=== PATIENT | male | born 1955 | race Caucasian/White ===

== ENCOUNTER → 2017-07-02 | Outpatient (CLI) | payer OTHER ==
[2017-07-02 10:08] LABS: BASO # 0.1 10^3/uL (0.0-0.2); BASO % 0.9 % (0.0-1.0); EOS # 0.3 10^3/uL (0.0-0.50); EOS % 3.2 % (0.0-3.0); IMMATURE GRANULOCYTE % 0.4 % (0-0); LYMPH # 2.3 10^3/uL (1.5-4.5); LYMPH % 29.8 % (24.0-44.0); MEAN CORPUSCULAR HEMOGLOBIN 30.9 pg (27.0-33.0); MEAN CORPUSCULAR HGB CONC 34.3 g/dl (32.0-36.5); MONO # 0.6 10^3/uL (0.0-0.8); MONO % 8.3 % (0.0-5.0); NEUTROPHILS # 4.4 10^3/uL (1.8-7.7); NEUTROPHILS % 57.4 % (36.0-66.0); PLATELET COUNT, AUTOMATED 250 10^3/uL (150-450); RED CELL DISTRIBUTION WIDTH 13.1 % (11.5-14.5); WHITE BLOOD COUNT 7.7 10^3/uL (4.0-10.0)
[2017-07-02 10:34] LABS: ALBUMIN 3.7 GM/DL (3.2-5.2); ALBUMIN/GLOBULIN RATIO 1.06 (1.00-1.93); ALKALINE PHOSPHATASE 114 U/L (45-117); ALT/SGPT 23 U/L (12-78); ANION GAP 8 MEQ/L (8-16); AST/SGOT 20 U/L (7-37); BILIRUBIN,TOTAL 0.2 MG/DL (0.2-1.0); BLOOD UREA NITROGEN 17 MG/DL (7-18); CARBON DIOXIDE LEVEL 25 MEQ/L (21-32); CHLORIDE LEVEL 104 MEQ/L (98-107); CHOLESTEROL LEVEL 186 MG/DL (<200); CREATININE FOR GFR 1.01 MG/DL (0.70-1.30); GLOMERULAR FILTRATION RATE > 60.0 (>49); GLUCOSE, FASTING 94 MG/DL (80-110); POTASSIUM SERUM 4.5 MEQ/L (3.5-5.1); SODIUM LEVEL 137 MEQ/L (136-145); TOTAL PROTEIN 7.2 GM/DL (6.4-8.2); TRIGLYCERIDES LEVEL 150 MG/DL (<150)
[2017-07-02 11:21] LABS: PLT CLUMPS? POS FLAG; POS COUNT POS FLAG
[2017-07-02 11:22] LABS: ADD MANUAL DIFFER NO; DIFF SLIDE NUMBER 129
== END ==
LOC: M WUC 08:10
PROVIDERS: ATTEND Emergency Medicine
DX: E78.2 Mixed hyperlipidemia (principal); N40.0 Benign prostatic hyperplasia without lower urinary tract symptoms

== ENCOUNTER 2017-07-30 09:52 | Day surgery (SDC) | payer OTHER ==
[2017-07-30] MEDS: NS 1,000 ML IV (10:15)
[2017-07-30] MEDS ORDERED: PROPOFOL 500 MG/50 ML VIAL As Ordered (11:13)
[2017-07-30] MEDS ORDERED: LIDOCAINE 2% INJ 100 MG/5 ML SDV (FOR ANES.) As Ordered (11:13)
== END 2017-07-30 11:57 | disposition home or self-care (01) ==
LOC: M OPP 09:52
DX: Z12.11 Encounter for screening for malignant neoplasm of colon (principal); Z86.010 Personal history of colon polyps; D12.3 Benign neoplasm of transverse colon; D12.5 Benign neoplasm of sigmoid colon; K64.8 Other hemorrhoids; K57.30 Diverticulosis of large intestine without perforation or abscess without bleeding; M19.90 Unspecified osteoarthritis, unspecified site; G47.30 Sleep apnea, unspecified; R06.83 Snoring; N40.0 Benign prostatic hyperplasia without lower urinary tract symptoms; R09.89 Other specified symptoms and signs involving the circulatory and respiratory systems; F17.210 Nicotine dependence, cigarettes, uncomplicated; Z80.3 Family history of malignant neoplasm of breast; Z80.8 Family history of malignant neoplasm of other organs or systems; Z80.0 Family history of malignant neoplasm of digestive organs
CPT/HCPCS: 45385

== ENCOUNTER → 2018-09-27 | Outpatient (REF) | payer OTHER ==
[~2018-09-27] MED LIST: IBUP200C25 PO
== END ==
LOC: M LAB REF 19:18
PROVIDERS: ATTEND Dermatology
DX: L02.91 Cutaneous abscess, unspecified (principal)

== ENCOUNTER → 2019-07-05 | Outpatient (CLI) | payer OTHER ==
[2019-07-05 17:07] LABS: BLOOD UREA NITROGEN 16 MG/DL (7-18); CREATININE FOR GFR 0.95 MG/DL (0.70-1.30); GLOMERULAR FILTRATION RATE > 60.0 (>49)
== END ==
LOC: M WUC 12:19
PROVIDERS: ATTEND Physician Assistant
DX: Z01.812 Encounter for preprocedural laboratory examination (principal); R22.1 Localized swelling, mass and lump, neck

== ENCOUNTER → 2019-08-09 | Outpatient (REF) | payer OTHER | LOC: M LAB REF 14:57 | PROVIDERS: ATTEND Specialist | DX: D11.0 Benign neoplasm of parotid gland (principal) ==

== ENCOUNTER → 2019-09-02 | Outpatient (CLI) | payer OTHER ==
[~2019-09-02] MED LIST changes: +MULTCAP PO
--- NOTE | 2019-09-02 16:30 | ECGEPIP ---
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
== END ==
LOC: M EKG 15:11
PROVIDERS: ATTEND Anesthesiology
DX: Z01.818 Encounter for other preprocedural examination (principal); J44.9 Chronic obstructive pulmonary disease, unspecified

== ENCOUNTER 2019-09-06 11:16 | Day surgery (SDC) | payer OTHER ==
[~2019-09-06] VITALS: Ht 175.3 cm; Wt 66.7 kg
[2019-09-06] MEDS ORDERED: BACITRACIN OINT 30GM As Ordered ONE (12:40)
[2019-09-06] MEDS ORDERED: LIDOCAINE W/EPINEPHRINE 1% 20ML VIAL As Ordered ONE (12:40)
[2019-09-06] MEDS ORDERED: SUGAMMADEX SODIUM 500 MG/5 ML VIAL (BRIDION) As Ordered ONE (13:20)
[2019-09-06] MEDS ORDERED: fentaNYL 100 MCG/2 ML INJECTION (J3010) As Ordered ONE ×4 (13:39→16:02)
[2019-09-06] MEDS ORDERED: dexameTHASONE 4 MG/ML 1ML VIAL (J1100) As Ordered ONE (13:48)
[2019-09-06] MEDS ORDERED: LIDOCAINE 2% INJ 100 MG/5 ML SDV (FOR ANES.) As Ordered ONE ×2 (13:48→15:08)
[2019-09-06] MEDS ORDERED: ONDANSETRON 4MG/2ML VIAL (J2405) As Ordered ONE (13:48)
[2019-09-06] MEDS ORDERED: PHENYLephrine HCL 500 MCG/5 ML (100MCG/ML) SYRINGE (J2370) As Ordered ONE (13:48)
[2019-09-06] MEDS ORDERED: propofoL 200 MG/20 ML VIAL As Ordered ONE (13:48)
[2019-09-06] MEDS ORDERED: ePHEDrine SULFATE 25 MG/5 ML(5MG/ML) SYRINGE As Ordered ONE (13:48)
[2019-09-06] MEDS ORDERED: ACETAMINOPHEN 1000MG 100ML IV BTL (OFIRMEV) (J0131 PER 10MG) As Ordered ONE (13:49)
[2019-09-06] MEDS ORDERED: ACETAMINOPH W/CODEINE #3 TAB UD PO PRN (15:45)
[2019-09-06] MEDS ORDERED: LR 1,000 ML IV SCH ×2 (15:45→16:15)
[2019-09-06] MEDS: fentaNYL 100 MCG/2 ML INJECTION (J3010) IV PRN ×4 (16:03→16:24)
[2019-09-06] MEDS ORDERED: PERCOCET 5MG/325MG TAB PO PRN (16:15)
[2019-09-06] MEDS ORDERED: oxyCODONE 5MG TAB PO SCH (16:15)
[2019-09-06] MEDS ORDERED: ONDANSETRON 4MG/2ML VIAL (J2405) IV PRN (16:15)
[2019-09-06] MEDS ORDERED: oxyCODONE 5MG TAB PO PRN (16:30)
[2019-09-06 17:45] VITALS: BP 164/84
--- NOTE | 2019-09-07 08:18 | RO ---
DATE OF PROCEDURE: 09/06/2019 PREPROCEDURE DIAGNOSIS: Right parotid tumor. POSTPROCEDURE DIAGNOSIS: Right parotid tumor. PROCEDURE: Right superficial parotidectomy SURGEON: Dr. John Rivera FINDINGS: There was a small tumor in the tail of the parotid on the right side. CRAPS DEALER: Ravi Malloy. He helped me with retractors and suturing and holding instruments. ANESTHESIA: DESCRIPTION OF PROCEDURE: Under general anesthesia with the patient intubated, the patient was draped in the usual manner. I used the nerve monitor during the procedure so prior to the procedure the electrodes were hooked up. Once that was done and the patient asleep the patient prepped and draped in the usual manner. I infiltrated the incision with lidocaine with epinephrine. Incision was marked out and then divided skin and subcutaneous tissues. I elevated the tissues off of the parotid. I dissected between the parotid and the external auditory canal and anterior to the sternocleidomastoid muscle. I identified the facial nerve. Vessels seen were cauterized with bipolar cautery. I then dissected down to identify the facial nerve. I followed all the branches of the facial nerve. I reflected the gland and delivered it from the wound. The nerve was stimulated at the end of the procedure. Patient tolerated the procedure well. 75 mL estimated blood loss. I checked the wound to make sure there is no bleeding. Bleeding was controlled by bipolar cautery. I then went and inserted a Jose-Thurston drain through a separate stab wound. Once this was done then I closed the wound with #5-0 nylon and #4-0 Vicryl. Wound was dressed. The patient extubated and transferred to the recovery room in excellent condition.
== END 2019-09-06 18:10 | disposition home or self-care (01) ==
LOC: M SDC 11:16
PROVIDERS: ATTEND Otolaryngology
DX: D11.0 Benign neoplasm of parotid gland (principal); E78.2 Mixed hyperlipidemia; J44.9 Chronic obstructive pulmonary disease, unspecified; F17.218 Nicotine dependence, cigarettes, with other nicotine-induced disorders; N40.0 Benign prostatic hyperplasia without lower urinary tract symptoms
CPT/HCPCS: 42415; 88307; J0131; J1100; J2370; J2405; J3010

== ENCOUNTER → 2019-10-03 | Outpatient (REF) | payer OTHER | LOC: M LAB REF 17:36 | PROVIDERS: ATTEND Dermatology | DX: C44.519 Basal cell carcinoma of skin of other part of trunk (principal) ==

== ENCOUNTER → 2019-10-24 | Outpatient (REF) | payer OTHER | LOC: M LAB REF 12:39 | PROVIDERS: ATTEND Dermatology | DX: C44.519 Basal cell carcinoma of skin of other part of trunk (principal) ==

== ENCOUNTER → 2020-09-18 | Outpatient (CLI) | payer OTHER ==
[2020-09-18 12:08] LABS: BASO # 0.1 10^3/uL (0.0-0.2); BASO % 1.1 % (0.0-1.0); EOS # 0.3 10^3/uL (0.0-0.5); EOS % 3.7 % (0.0-3.0); HEMATOCRIT 44.9 % (42.0-52.0); HEMOGLOBIN 14.7 g/dl (13.5-17.5); LYMPH # 3.4 10^3/uL (1.5-5.0); LYMPH % 42.1 % (24.0-44.0); MEAN CORPUSCULAR HGB CONC 32.7 g/dl (32.0-36.5); MEAN CORPUSCULAR VOLUME 91.6 fl (80.0-96.0); MONO # 0.9 10^3/uL (0.0-0.8); MONO % 10.5 % (2.0-8.0); NEUTROPHILS # 3.4 10^3/uL (1.5-8.5); NEUTROPHILS % 42.1 % (36.0-66.0); PLATELET COUNT, AUTOMATED 263 10^3/uL (150-450); WHITE BLOOD COUNT 8.1 10^3/uL (4.0-10.0)
[2020-09-18 12:39] LABS: ALBUMIN 3.8 GM/DL (3.2-5.2); ALT/SGPT 44 U/L (12-78); BILIRUBIN,TOTAL 0.2 MG/DL (0.2-1.0); BLOOD UREA NITROGEN 14 MG/DL (7-18); CALCIUM LEVEL 9.3 MG/DL (8.8-10.2); CARBON DIOXIDE LEVEL 28 MEQ/L (21-32); CHLORIDE LEVEL 106 MEQ/L (98-107); CHOLESTEROL LEVEL 254 MG/DL (<200); CHOLESTEROL RISK RATIO 7.257 (<5); CREATININE FOR GFR 1.06 MG/DL (0.70-1.30); GLOMERULAR FILTRATION RATE > 60.0 (>49); GLUCOSE, FASTING 101 MG/DL (70-100); HDL CHOLESTEROL 35 MG/DL (>40); LDL CHOLESTEROL 166 MG/DL (<100); NON-HDL-C 219 MG/DL; POTASSIUM SERUM 4.2 MEQ/L (3.5-5.1); SODIUM LEVEL 140 MEQ/L (136-145); TOTAL PROTEIN 7.4 GM/DL (6.4-8.2); TRIGLYCERIDES LEVEL 267 MG/DL (<150)
== END ==
LOC: M WUC 09:08
PROVIDERS: ATTEND Family Medicine
DX: E78.2 Mixed hyperlipidemia (principal)

== ENCOUNTER → 2021-02-05 | Outpatient (CLI) | payer OTHER ==
[~2021-02-05] MED LIST changes: +ISOVUE-370 76% 100ML VIAL As Ordered ONE
--- NOTE | 2021-02-05 15:09 | REP ---
INDICATION: PERSON AL H/O NICOTINE DEPEND. COMPARISON: 10/01/2010 TECHNIQUE: Low-dose lung CT screening protocol FINDINGS: Bilateral fairly symmetric pleuroparenchymal scarring in the apices. This area could certainly obscure parenchymal nodule. There is no pleural effusion, pleural based mass, calcified pleural plaque or acute infiltrate. No parenchymal nodules are identified. Underlying COPD with some emphysematous changes predominantly in the mid and upper lung zones. Central pulmonary arteries are prominent bilaterally, consistent with pulmonary artery hypertension, likely on the basis of COPD IMPRESSION: 1. Lung RADS category 2 benign, benign finding. Apical pleuroparenchymal scarring noted bilaterally and some is seen on the chest x-ray 10 years ago. Patients with this category of scan are considered to have less than 1% chance of malignancy at the time of the examination. For patients at high risk of developing lung malignancy, annual screening low-dose CT recommended. <Electronically signed by Iam Rodríguez > 02/05/21 [id number]
== END ==
LOC: M RAD 13:54
PROVIDERS: ATTEND Family Medicine
DX: Z12.2 Encounter for screening for malignant neoplasm of respiratory organs (principal); Z87.891 Personal history of nicotine dependence; J44.9 Chronic obstructive pulmonary disease, unspecified

== ENCOUNTER → 2021-02-08 | Outpatient (CLI) | payer OTHER ==
[~2021-02-08] MED LIST changes: -ISOVUE-370 76% 100ML VIAL As Ordered ONE
[2021-02-08 16:36] LABS: ALBUMIN 3.8 GM/DL (3.2-5.2); BILIRUBIN,DIRECT 0.1 MG/DL (0.0-0.2); BILIRUBIN,TOTAL 0.5 MG/DL (0.2-1.0); CHOLESTEROL RISK RATIO 3.976 (<5); TOTAL PROTEIN 7.3 GM/DL (6.4-8.2)
== END ==
LOC: M WUC 10:22
PROVIDERS: ATTEND Family Medicine
DX: E78.2 Mixed hyperlipidemia (principal)

== ENCOUNTER → 2021-10-08 | Outpatient (CLI) | payer OTHER ==
[2021-10-08 15:41] LABS: APPEARANCE, URINE CLEAR (CLEAR); BACTERIA, URINE AUTO NEGATIVE (NEGATIVE); BILIRUBIN, URINE AUTO NEGATIVE (NEGATIVE); BLOOD, URINE BLOOD NEGATIVE (NEGATIVE); COLOR, URINE YELLOW (YELLOW); GLUCOSE, URINE (UA) AUTO NEGATIVE (NEGATIVE); KETONE, URINE AUTO NEGATIVE (NEGATIVE); LEUKOCYTE ESTERASE, URINE AUTO NEGATIVE (NEGATIVE); MUCUS, URINE SMALL (NEGATIVE); NITRITE, URINE AUTO NEGATIVE (NEGATIVE); PROTEIN, URINE AUTO NEGATIVE (NEGATIVE); RBC, URINE AUTO 0 /HPF (0-3); SPECIFIC GRAVITY URINE AUTO 1.013 (1.002-1.035); SQUAMOUS EPITHELIAL CELL UR AU 0 /HPF (0-6); UROBILINOGEN, URINE AUTO 0.2 mg/dL (0.0-2.0); WBC, URINE AUTO 1 /HPF (0-3)
[2021-10-08 16:02] LABS: BLOOD UREA NITROGEN 13 MG/DL (7-18); CALCIUM LEVEL 9.4 MG/DL (8.8-10.2); CARBON DIOXIDE LEVEL 26 MEQ/L (21-32); CHLORIDE LEVEL 106 MEQ/L (98-107); CREATININE FOR GFR 1.04 MG/DL (0.70-1.30); GLOMERULAR FILTRATION RATE > 60.0 (>49); GLUCOSE, FASTING 101 MG/DL (70-100); POTASSIUM SERUM 5.1 MEQ/L (3.5-5.1); SODIUM LEVEL 136 MEQ/L (136-145)
== END ==
LOC: M WUC 11:16
PROVIDERS: ATTEND Nurse Practitioner Family
DX: Z01.818 Encounter for other preprocedural examination (principal)

== ENCOUNTER → 2021-10-17 | Outpatient (CLI) | payer OTHER ==
[~2021-10-17] MED LIST changes: +ATOR1TAB19 PO
== END ==
LOC: M LABSMTC 09:59
PROVIDERS: ATTEND Anesthesiology
DX: Z01.818 Encounter for other preprocedural examination (principal); Z11.52 Encounter for screening for COVID-19

== ENCOUNTER 2021-10-21 11:53 | Day surgery (SDC) | payer OTHER ==
[~2021-10-21] VITALS: Ht 175.3 cm; Wt 69.9 kg
[~2021-10-21 11:53] MED LIST changes: +LIDOCAINE 1% MDV 20ML VIAL SQ PRN; +LR 1,000 ML IV ONE; +ceFAZolin SOD 2 GM in IV 1 EA IV ONE
[2021-10-21] MEDS ORDERED: LIDOCAINE W/EPINEPHRINE 1% 20ML VIAL As Ordered ONE (13:08)
[2021-10-21] MEDS ORDERED: LIDOCAINE 2% 100MG/5ML SDV (FOR ANES.) As Ordered ONE (13:28)
[2021-10-21] MEDS ORDERED: MIDAZOLAM INJ 2MG/2ML VIAL (J2250 PER 1MG) As Ordered ONE (13:28)
[2021-10-21] MEDS ORDERED: fentaNYL 250 MCG/5 ML INJECTION As Ordered ONE (13:28)
[2021-10-21] MEDS ORDERED: dexameTHASONE 4 MG/ML 1ML VIAL (J1100 PER 1MG) As Ordered ONE (13:28)
[2021-10-21] MEDS ORDERED: ACETAMINOPHEN 1000MG 100ML IV BTL (OFIRMEV) (J0131 PER 10MG) As Ordered ONE (13:28)
[2021-10-21] MEDS ORDERED: ONDANSETRON 4MG/2ML VIAL As Ordered ONE (13:28)
[2021-10-21] MEDS ORDERED: ROCURONIUM BROMIDE 50 MG/5 ML VIAL As Ordered ONE (13:28)
[2021-10-21] MEDS ORDERED: METOCLOPRAMIDE INJ 10MG/2ML VIAL (J2765 PER 1) As Ordered ONE (13:28)
[2021-10-21] MEDS ORDERED: propofoL 200 MG/20 ML VIAL As Ordered ONE (13:28)
[2021-10-21] MEDS ORDERED: SUGAMMADEX SODIUM 500 MG/5 ML VIAL (BRIDION) As Ordered ONE (13:28)
[2021-10-21] MEDS ORDERED: LABETALOL 100MG/20ML VIAL As Ordered ONE (13:54)
[2021-10-21] MEDS ORDERED: KETOROLAC 60MG 2ML VIAL As Ordered ONE (13:55)
[2021-10-21] MEDS ORDERED: oxyCODONE 5MG TAB PO PRN (14:50)
[2021-10-21] MEDS ORDERED: LR 1,000 ML IV SCH (14:50)
[2021-10-21] MEDS ORDERED: ONDANSETRON 4MG/2ML VIAL IV PRN (14:50)
[2021-10-21] MEDS ORDERED: MEPERIDINE INJ 25 MG/ML VIAL (J2175) IV PRN (14:50)
[2021-10-21] MEDS ORDERED: PROMETHAZINE 25MG/ML 1ML VIAL IV PRN (14:50)
[2021-10-21] MEDS ORDERED: HYDROMORPHONE HCL 0.5 MG/ 0.5 ML SYRINGE (J1170 PER 1) IV PRN (14:50)
[2021-10-21] MEDS ORDERED: NORCO, ANEXSIA 5/325MG TABLET (HYDROcodone/ACETAMINOPHEN) PO PRN (14:55)
[2021-10-21] MEDS ORDERED: ALBUTEROL SULFATE 2.5 MG/0.5 ML INH NEB SOLN INH ONE (14:55)
[2021-10-21 16:30] VITALS: BP 159/75
== END 2021-10-21 16:35 | disposition home or self-care (01) ==
LOC: M SDC 11:53
PROVIDERS: ATTEND Surgery
DX: K40.20 Bilateral inguinal hernia, without obstruction or gangrene, not specified as recurrent (principal); M19.90 Unspecified osteoarthritis, unspecified site; N40.0 Benign prostatic hyperplasia without lower urinary tract symptoms; E78.00 Pure hypercholesterolemia, unspecified; M54.9 Dorsalgia, unspecified; R06.83 Snoring; F17.210 Nicotine dependence, cigarettes, uncomplicated; Z79.899 Other long term (current) drug therapy
CPT/HCPCS: 49651; C1781; J0131; J0690; J1100; J1885; J2250; J2405; J2765; J3010; S2900

== ENCOUNTER → 2022-01-08 | Outpatient (CLI) | payer OTHER ==
[~2022-01-08] MED LIST changes: -LIDOCAINE 1% MDV 20ML VIAL SQ PRN; -LR 1,000 ML IV ONE; -ceFAZolin SOD 2 GM in IV 1 EA IV ONE
[2022-01-08 10:12] LABS: ALBUMIN 3.5 GM/DL (3.2-5.2); ALT/SGPT 25 U/L (12-78); BILIRUBIN,TOTAL 0.3 MG/DL (0.2-1.0); BLOOD UREA NITROGEN 15 MG/DL (7-18); CALCIUM LEVEL 9.2 MG/DL (8.8-10.2); CARBON DIOXIDE LEVEL 27 MEQ/L (21-32); CHLORIDE LEVEL 105 MEQ/L (98-107); CHOLESTEROL LEVEL 165 MG/DL (<200); CREATININE FOR GFR 1.11 MG/DL (0.70-1.30); GLOMERULAR FILTRATION RATE > 60.0 (>49); GLUCOSE, FASTING 99 MG/DL (70-100); HDL CHOLESTEROL 39 MG/DL (>40); LDL CHOLESTEROL 86 MG/DL (<100); NON-HDL-C 126 MG/DL; POTASSIUM SERUM 4.1 MEQ/L (3.5-5.1); SODIUM LEVEL 140 MEQ/L (136-145); TOTAL PROTEIN 6.9 GM/DL (6.4-8.2); TRIGLYCERIDES LEVEL 200 MG/DL (<150)
== END ==
LOC: M WUC 08:31
PROVIDERS: ATTEND Family Medicine
DX: E78.2 Mixed hyperlipidemia (principal)

== ENCOUNTER → 2022-01-23 | Outpatient (CLI) | payer OTHER ==
[2022-01-23 13:15] LABS: HEMOGLOBIN A1c 5.2 %
== END ==
LOC: M WUC 09:56
PROVIDERS: ATTEND Nurse Practitioner Family
DX: N48.1 Balanitis (principal)

== ENCOUNTER → 2022-03-26 | Outpatient (CLI) | payer OTHER | LOC: M RAD 06:23 | PROVIDERS: ATTEND Nurse Practitioner Family | DX: Z12.2 Encounter for screening for malignant neoplasm of respiratory organs (principal); Z87.891 Personal history of nicotine dependence; J44.9 Chronic obstructive pulmonary disease, unspecified ==

== ENCOUNTER → 2022-04-29 | Outpatient (REF) | payer OTHER | LOC: M SFHCDERM 17:23 | PROVIDERS: ATTEND Physician Assistant | DX: R21 Rash and other nonspecific skin eruption (principal) ==

== ENCOUNTER → 2022-09-18 | Outpatient (CLI) | payer OTHER ==
[~2022-09-18] MED LIST changes: +LEVOTAB10 PO; +TRIA1CR80 TOP
== END ==
LOC: M LABSMTC 10:54
PROVIDERS: ATTEND Anesthesiology
DX: Z01.812 Encounter for preprocedural laboratory examination (principal)

== ENCOUNTER 2022-09-23 08:42 | Day surgery (SDC) | payer OTHER ==
[~2022-09-23] VITALS: Ht 175.3 cm; Wt 66.7 kg
[~2022-09-23 08:42] MED LIST changes: +NS 1,000 ML IV ONE
[2022-09-23] MEDS ORDERED: LIDOCAINE 2% 100MG/5ML SDV (FOR ANES.) As Ordered ONE (09:27)
[2022-09-23] MEDS ORDERED: propofoL 200 MG/20 ML VIAL As Ordered ONE (09:27)
[2022-09-23] MEDS ORDERED: PHENYLephrine 500MCG 5ML (100MCG/ML) SYRINGE As Ordered ONE (09:56)
[2022-09-23 10:20] VITALS: BP 115/55
== END 2022-09-23 10:41 | disposition home or self-care (01) ==
LOC: M OPP 08:42
PROVIDERS: ATTEND Internal Medicine Gastroenterology
DX: Z12.11 Encounter for screening for malignant neoplasm of colon (principal); Z86.010 Personal history of colon polyps; Z80.0 Family history of malignant neoplasm of digestive organs; D12.5 Benign neoplasm of sigmoid colon; K63.5 Polyp of colon; K57.30 Diverticulosis of large intestine without perforation or abscess without bleeding; K64.8 Other hemorrhoids; E78.00 Pure hypercholesterolemia, unspecified; F17.200 Nicotine dependence, unspecified, uncomplicated; Z79.02 Long term (current) use of antithrombotics/antiplatelets; Z79.52 Long term (current) use of systemic steroids; Z80.3 Family history of malignant neoplasm of breast
CPT/HCPCS: 45385; 88305; J2370

== ENCOUNTER → 2022-10-13 | Outpatient (REF) | payer OTHER ==
[~2022-10-13] MED LIST changes: -NS 1,000 ML IV ONE
== END ==
LOC: M SFHCDERM 14:37
PROVIDERS: ATTEND Physician Assistant
DX: C44.521 Squamous cell carcinoma of skin of breast (principal)

== ENCOUNTER → 2022-11-07 | Outpatient (REF) | payer OTHER | LOC: M LAB REF 17:13 | PROVIDERS: ATTEND Surgery | DX: C44.529 Squamous cell carcinoma of skin of other part of trunk (principal) ==

== ENCOUNTER → 2023-06-15 | Outpatient (CLI) | payer OTHER | LOC: M RAD 07:50 | PROVIDERS: ATTEND Nurse Practitioner Family | DX: Z12.2 Encounter for screening for malignant neoplasm of respiratory organs (principal); Z87.891 Personal history of nicotine dependence ==

== ENCOUNTER → 2024-08-26 | Outpatient (CLI) | payer MEDICARE, OTHER | LOC: M RAD 08:31 | PROVIDERS: ATTEND Registered Nurse | DX: F17.210 Nicotine dependence, cigarettes, uncomplicated (principal); J84.10 Pulmonary fibrosis, unspecified ==

== ENCOUNTER → 2025-07-18 | Outpatient (CLI) | payer MEDICARE | LOC: M PLAIMG 12:26 | PROVIDERS: ATTEND Nurse Practitioner Family | DX: R22.1 Localized swelling, mass and lump, neck (principal) ==